=== PATIENT | female | born 1990 | race Two or more races ===

== ENCOUNTER → 2018-04-27 | Emergency (ER) | payer OTHER ==
[~2018-04-27] VITALS: Ht 165.1 cm; Wt 59.9 kg
[~2018-04-27] MED LIST: GARAMYCIN OPHT3.5 GM OP; KETO10TA2 PO; REDNESS RELIEF15 M1 OP
== END | disposition home or self-care (01) ==
LOC: ER 22:36
DX: S00.12XA Contusion of left eyelid and periocular area, initial encounter (principal); W23.0XXA Caught, crushed, jammed, or pinched between moving objects, initial encounter; Y93.89 Activity, other specified; Y92.89 Other specified places as the place of occurrence of the external cause; Y99.8 Other external cause status

== ENCOUNTER → 2018-06-03 | Emergency (ER) | payer OTHER ==
[~2018-06-03] VITALS: Ht 165.1 cm; Wt 56.7 kg
== END | disposition home or self-care (01) ==
LOC: ER 15:35
DX: K52.9 Noninfective gastroenteritis and colitis, unspecified (principal)